=== PATIENT | female | born 1970 | race Caucasian/White ===

== ENCOUNTER → 2017-07-03 | Outpatient (CLI) | payer OTHER ==
--- NOTE | 2017-07-03 11:08 | Diagnostic Imaging Report ---
PROCEDURE:HAND RIGHT 3 VIEWS AP \T\ LAT COMPARISON:None. INDICATIONS:RIGHT HAND SWELLING/PAIN FINDINGS: There are no fractures, dislocations, lytic or blastic lesions. The bones are well-mineralized. The soft-tissues are unremarkable. CONCLUSION: No acute radiographic abnormality. Dictated by: Jose Brantley M.D. on 07/03/2017 at 11:17 Electronically approved by: Jose Brantley M.D. on 07/03/2017 at 11:17
== END ==
LOC: RAD 10:10
PROVIDERS: ATTEND Internal Medicine
DX: M79.641 Pain in right hand (principal); M79.89 Other specified soft tissue disorders